=== PATIENT | female | born 1960 | race Caucasian/White ===

== ENCOUNTER 2017-04-02 08:00 | Outpatient (CLI) | payer OTHER | END 2017-04-02 08:01 | disposition home or self-care (01) | LOC: LAB.F 08:00 | DX: Z02.1 Encounter for pre-employment examination (principal) ==

== ENCOUNTER 2021-02-06 16:45 | Outpatient (CLI) | payer OTHER | END 2021-02-06 16:46 | disposition home or self-care (01) | LOC: COV 16:45 | PROVIDERS: ATTEND Family Medicine | DX: Z20.822 Contact with and (suspected) exposure to COVID-19 (principal) ==

== ENCOUNTER 2023-08-25 15:23 | Emergency (ER) | payer OTHER ==
[2023-08-25 15:48] VITALS: BP 116/72; O2SAT 96
--- NOTE | 2023-08-25 16:10 | ED Physician Documentation ---
PD HPI UPPER EXT INJURY - Stated complaint Stated Complaint: L WRIST INJ - Chief complaint Chief Complaint: Trauma Ext - History obtained from History obtained from: Patient - Additonal information Additional information: The patient comes to the emergency department chief complaint of left wrist pain after a fall. She states she was coming down hill with her dogs when they started to run and pull on the leash. She started to lose her balance and slipped down the hill and put her hand out behind her to try to catch herself. She states she felt a "give" in her wrist when she did this. No other injuries or complaints. No prior history of injury to the left wrist. The patient states this just happened today. No numbness or tingling in her hand. She took 600 mg of ibuprofen prior to coming and feels better after this. PD PAST MEDICAL HISTORY - Past Medical History Past Medical History: Yes Psych: Anxiety Musculoskeletal: Chronic back pain Other Past Medical History: psiatica - Past Surgical History Past Surgical History: Yes HEENT: Tonsil/Adenoidectomy - Present Medications Home Medications: Ambulatory Orders Medication Instructions Recorded Confirmed Escitalopram [Lexapro] 10 mg PO DAILY 08/25/23 08/25/23 - Allergies Allergies/Adverse Reactions: Allergies Allergy/AdvReac Type Severity Reaction Status Date / Time Sulfa (Sulfonamide Allergy Edema Verified 08/25/23 15:45 Antibiotics) - Social History Does the pt smoke?: No Smoking Status: Former smoker Does the pt drink ETOH?: Yes ETOH Use: Liquor Does the pt have substance abuse?: No PD ED PE NORMAL - Vitals Vital signs reviewed: Yes - General General: Alert and oriented X 3, No acute distress, Well developed/nourished - HEENT HEENT: Atraumatic, EOMI, Moist mucous membranes - Neck Neck: Supple, no meningeal sign - Cardiac Cardiac: Strong equal pulses - Respiratory Respiratory: No respiratory distress - Derm Derm: Warm and dry - Extremities Extremities: Other (Slight deformity of dorsal distal radius with mild edema.) - Neuro Neuro: No motor deficit, No sensory deficit, Other (Grossly normal.) - Psych Psych: Normal mood, Normal affect Results - Vitals Vitals: Vital Signs - 24 hr 08/25/23 15:39 Temperature 37.0 C Heart Rate 67 Respiratory 18 Rate Blood Pressure 116/72 O2 Saturation 96 Oxygen O2 Source Room air - Rads (name of study) Left wrist x-ray series Relevant Findings:: Final report received, See rad report Procedures - Splint (location) - Minor LUE Splint applied by: Forest Jones Type of splint: Fiberglass Other: Patient tolerated well, No complications, Neurovascular intact, Good alignment, Sling provided PD Medical Decision Making - ED course Complexity details: reviewed results, re-evaluated patient, considered differential, d/w patient, d/w family ED course: The patient was found to have a minimally displaced, slightly impacted distal radius fracture on left wrist x-ray series. We have discussed that the patient should follow-up within roughly a week with orthopedics and that she should call first thing on Saturday morning to make an appointment, as this is . Sugar-tong splint has been placed and the patient has been given a sling. We have discussed splint care and limitations to use of the arm. We have also discussed symptomatic management at home and the usual indications for return. Departure - Departure Disposition: Home, Self Care Clinical Impression: Distal radius fracture, left Qualifiers: Encounter type: initial encounter Fracture type: closed Fracture morphology: unspecified fracture morphology Qualified Code(s): S52.502A - Unspecified fracture of the lower end of left radius, initial encounter for closed fracture Condition: Stable Instructions: Distal Radius Fx Follow-Up: Paddy Hinojosa MD [Provider Admit Priv/Credential] - Comments: Your x-ray shows a wrist fracture involving your radius, the larger of your 2 forearm bones. Fortunately, this is fairly well aligned has not moved out of the way much. As such, you have been splinted today, but you will you will need to follow-up with orthopedics to determine whether you want surgery or not. Please call first thing on Saturday, the day after tomorrow, to make an appointment for follow-up. You should be seen within about a week. You may take ibuprofen and Tylenol as needed for pain. Please cover your splint to keep it from getting wet when you take a shower. Forms: PCP List Discharge Date/Time: 08/25/23 16:42
--- NOTE | 2023-08-25 16:19 | XRAY Report ---
PROCEDURE: Wrist 3+V LT INDICATIONS: pain/injury TECHNIQUE: 3 views of the wrist were acquired. COMPARISON: None. FINDINGS: Bones: Comminuted impacted fracture of the distal radius with intra-articular extension. Mildly disp laced ulnar styloid tip fracture No suspicious bony lesions. Soft tissues: No suspicious soft tissue calcifications or masses. IMPRESSION: Comminuted intra-articular fracture of the distal radius. Mildly displaced ulnar styloid tip fracture . Reviewed by: Jennifer Bahena MD, PhD on 08/25/2023 3:18 PM YOGESH Approved by: Jennifer Bahena MD, PhD on 08/25/2023 3:18 PM YOGESH Station ID: [id number]
== END 2023-08-25 16:42 | disposition home or self-care (01) ==
LOC: ED 15:23
DX: S52.502A Unspecified fracture of the lower end of left radius, initial encounter for closed fracture (principal); W17.81XA Fall down embankment (hill), initial encounter; Y93.K1 Activity, walking an animal; Z87.891 Personal history of nicotine dependence
CPT/HCPCS: 29125; 99283; 99284

== ENCOUNTER 2023-09-25 13:14 | Outpatient (CLI) | payer BC ==
--- NOTE | 2023-09-26 07:15 | XRAY Report ---
PROCEDURE: Wrist 3+V LT INDICATIONS: FRACTURE OF LOWER END OF LT RADIUS TECHNIQUE: 3 views of the wrist were acquired. COMPARISON: X-ray left wrist, 08/25/2023. FINDINGS: Bones: There is a comminuted intra-articular distal radial metaphyseal fracture with mild impaction and angulation. Increased sclerosis along the fracture line consistent with healing. Alignment is sta ble. A minimally displaced ulnar styloid fracture is noted. No suspicious bony lesions. Soft tissues: No suspicious soft tissue calcifications or masses. IMPRESSION: 1. Healing distal radial fracture. 2. Ulnar styloid fracture. Reviewed by: Titi Andrew MD on 09/26/2023 7:14 AM PDT Approved by: Titi Andrew MD on 09/26/2023 7:14 AM PDT Station ID: [id number]
== END 2023-09-25 13:15 | disposition home or self-care (01) ==
LOC: DI.S 13:14
PROVIDERS: ATTEND Orthopaedic Surgery
DX: S52.572D Other intraarticular fracture of lower end of left radius, subsequent encounter for closed fracture with routine healing (principal); S52.612A Displaced fracture of left ulna styloid process, initial encounter for closed fracture